=== PATIENT | male | born 1965 | race Caucasian/White ===

== ENCOUNTER → 2019-01-09 13:14 | Outpatient (CLI) | payer OTHER, SELFPAY ==
--- NOTE | 2019-01-09 | DI.RAD.S_ITS ---
PROCEDURE: XR LUMBAR SPINE 2-3V INDICATIONS: BACK PAIN/LEFT ANKLE PAIN TECHNIQUE: 3 views of the lumbar spine were acquired. COMPARISON: None. FINDINGS: Bones: 5 [id number] vertebrae are present. There is grade 2 anterolisthesis of first seizure segment over the second coccygeal segment. No vertebral body compression fractures. No suspicious bony lesions. There is [id number] degenerative disc disease at L2-L3, L3-L4, L4-L5 and L5-S1. There is moderate to severe facet arthropathy at L3-L4, L4-L5 and L5-S1. Soft tissues: Overlying bowel gas pattern is normal. No suspicious soft tissue calcifications. IMPRESSION: 1. Degenerative disc and facet disease in lumbar spine. 2. Grade 2 anterolisthesis of the coccyx, which may be sequelae of old fracture. Comparison to prior exams, if available, would be helpful. Please correlate with tail bone pain. Dictated by: Ellis Samano M.D. on 01/09/2019 at 14:22 Approved by: Ellis Samano M.D. on 01/09/2019 at 18:00
--- NOTE | 2019-01-09 | DI.RAD.S_ITS ---
PROCEDURE: XR ANKLE LT MIN 3V INDICATIONS: BACK PAIN/LEFT ANKLE PAIN TECHNIQUE: 3 views of the ankle were acquired. COMPARISON: None. FINDINGS: Bones: No fractures or dislocations. Ankle mortise is normally aligned. Suspect old distal tibiofibular syndesmotic injury with bone spur formation. No suspicious bony lesions. Soft tissues: No tibiotalar joint effusion. Achilles tendon appears thickened at the calcaneal insertion. IMPRESSION: 1. No acute osseous abnormalities. 2. Suspect old distal tibiofibular syndesmotic injury. 3. Thickening of distal Achilles tendon at the insertion to calcaneus, consistent with tendinitis. Dictated by: Ellis Samano M.D. on 01/09/2019 at 18:25 Approved by: Ellis Samano M.D. on 01/09/2019 at 18:27
== END ==
PROVIDERS: PCP Family Medicine; Visit Provider Family Medicine
DX: M19.072 Primary osteoarthritis, left ankle and foot (principal); M54.5 Low back pain; M51.36 Other intervertebral disc degeneration, lumbar region; M51.37 Other intervertebral disc degeneration, lumbosacral region; M47.816 Spondylosis without myelopathy or radiculopathy, lumbar region; M47.817 Spondylosis without myelopathy or radiculopathy, lumbosacral region; M43.18 Spondylolisthesis, sacral and sacrococcygeal region
CPT/HCPCS: 72100; 73610

== ENCOUNTER → 2020-10-10 13:16 | Outpatient (CLI) | payer OTHER, SELFPAY ==
--- NOTE | 2020-10-10 13:18 | DI.MRI.S_ITS ---
PROCEDURE: MR PELIS WO/W CON INDICATIONS: Elevated prostate specific antigen [PSA] TECHNIQUE: Coronal HASTE, axial T1 FSE with fat saturation, 3-plane nonbreath-hold T2 FSE. After the administration of contrast, dynamic axial, delayed axial and coronal VIBE or 2-D FLASH with fat saturation through the pelvis. Optional diffusion weighted imaging and ADC may be performed. COMPARISON: None. FINDINGS: Image quality: Diffusion weighted and dynamic contrast enhanced images are diagnostic. Prostate: Gland size is 5.8 x 5.7 x 4.4 cm; ellipsoid gland volume is 76 mL. Several BPH nodules. Median lobe hypertrophy. Punctate foci of intrinsic T1 hyperintensity. Lesion size(s): Lesion 1: 1.3 x 1.1 cm, (/8). Lesion 2: 0.9 x 0.6, (/14). Lesion location(s) (sector): Lesion 1: Left base transitional zone. Lesion 2: Right mid gland peripheral zone. Lesion description: Lesion 1: Oval Lesion 2: Oval T2 weighted imaging (T2WI) morphology score: Lesion 1: 3 Lesion 2: 3 Diffusion weighted imaging (DWI) morphology score: Lesion 1: 3 Lesion 2: 3 Dynamic contrast enhancement (DCE): Lesion 1: Absent Lesion 2: Absent Lesion PI-RADS score: Lesion 1: PI-RADS 3 Lesion 2: PI-RADS 3 Genitourinary system: Bladder wall thickness is normal. Distal ureters are non distended. Bowel and peritoneum: No pathologic free pelvic fluid. Inferior colon and small bowel loops are normal in caliber. Nodes and vessels: Right external iliac node measuring 0.8 cm, (4/3). Left external iliac node measuring 0.9 cm, (4/3). Small left pelvic sidewall lymph nodes. Iliac vessels are normal in caliber. Soft tissues: No inguinal hernias. Bones: Marrow demonstrates normal overall signal, without lesions to suggest metastases. IMPRESSION: 1. PI-RADS 3 observation left base transitional zone measuring 1.3 cm. 2. PI-RADS 3 observation right mid gland peripheral zone measuring 0.9 cm. 3. Mildly prominent bilateral external iliac nodes. 4. Mild prostatomegaly. BPH nodules. Median lobe hypertrophy. Dictated by: Yonny Rodas M.D. on 10/10/2020 at 15:18 Approved by: Yonny Rodas M.D. on 10/10/2020 at 15:36
== END ==
PROVIDERS: PCP Family Medicine; Referring Provider Urology; Visit Provider Urology
DX: N40.0 Benign prostatic hyperplasia without lower urinary tract symptoms (principal); R97.20 Elevated prostate specific antigen [PSA]
CPT/HCPCS: 72197